=== PATIENT | male | born 1980 | race Caucasian/White ===

== ENCOUNTER 2021-04-25 02:40 | Emergency (ER) | payer MEDICAID ==
[~2021-04-25] VITALS: Ht 172.7 cm; Wt 79.4 kg
--- NOTE | 2021-04-25 04:00 | NUR ---
PRESNETED TO THE ER FOR C/O BILATERAL FOREARM REDNESS, SWELLING AND INFECTION. ADMITTED ON INJECTING HEROIN. PT A, OX4, AMBULATORY TO BED 2 ER, WAS PLACED ON A MONITOR,. VSS . WILL CONT TO MONITOR
[2021-04-25] MEDS ORDERED: CEPH500T PO (04:13)
[2021-04-25] MEDS ORDERED: HYDR-3980 PO (04:13)
[2021-04-25] MEDS ORDERED: SULF1TAB48 PO (04:13)
[2021-04-25] MEDS ORDERED: LIDOCAINE 1%-EPI 1:100,000 20 ML VIAL ONE (04:14)
[2021-04-25] MEDS ORDERED: LORAZEPAM 1 MG TABLET ONE (04:14)
[2021-04-25] MEDS ORDERED: SODIUM BICARBONATE 5 ML VIAL ONE (04:14)
[2021-04-25] MEDS ORDERED: HYDROMORPHONE INJ 2 MG/ML DISP.SYRIN ONE (04:14)
[2021-04-25] MEDS ORDERED: TDAP [DIPH/PERTUSSIS/TET] 0.5 ML VIAL IM ONE ×2 (04:15→04:30)
[2021-04-25] MEDS ORDERED: HYDROMORPHONE 1 MG/1 ML DISP.SYRIN ONE (04:15)
[2021-04-25] MEDS ORDERED: CEFTRIAXONE 1 G VIAL ONE (04:15)
[2021-04-25] MEDS ORDERED: SULFAMETH/TRIMETH 800/160 MG 1 UDTAB TABLET ONE (04:15)
[2021-04-25] MEDS ORDERED: LIDOCAINE 1%-EPI 1:100,000 20 ML VIAL IJ ONE (04:30)
[2021-04-25] MEDS ORDERED: SODIUM BICARBONATE 5 ML VIAL MC ONE (04:30)
[2021-04-25] MEDS ORDERED: LORAZEPAM 1 MG TABLET PO ONE (04:30)
[2021-04-25] MEDS ORDERED: HYDROMORPHONE INJ 2 MG/ML DISP.SYRIN IM ONE (04:30)
[2021-04-25] MEDS ORDERED: SULFAMETH/TRIMETH 800/160 MG 1 UDTAB TABLET PO ONE (04:30)
[2021-04-25] MEDS ORDERED: CEFTRIAXONE 1 G VIAL IM ONE (04:30)
--- NOTE | 2021-04-25 05:30 | NUR ---
DR BAILEY AT BED SIDE FOR I&D
--- NOTE | 2021-04-25 06:49 | NUR ---
PT IS MEDICALLY STABLE FOR D/C. Patient discharged to home in stable condition. rx and Written and verbal after care instructions given. Patient verbalizes understanding of instruction.
[2021-04-25 06:52] VITALS: BP 139/88
== END 2021-04-25 06:54 | disposition home or self-care (01) ==
LOC: ER 02:46
DX: L02.414 Cutaneous abscess of left upper limb (principal); L03.114 Cellulitis of left upper limb; L03.113 Cellulitis of right upper limb; F17.210 Nicotine dependence, cigarettes, uncomplicated; Z60.2 Problems related to living alone; Z79.899 Other long term (current) drug therapy
CPT/HCPCS: 10060; 73090; 90471; 90715; 96372 ×2; 99284; 99406; A6403; A6407; J0696; J1170 ×2; J3490 ×2

== ENCOUNTER 2022-04-02 01:05 | Emergency (ER) | payer MEDICAID ==
[~2022-04-02] VITALS: Ht 167.6 cm; Wt 104.3 kg
[~2022-04-02 01:05] MED LIST: CEPH500T PO; HYDR-3980 PO; SULF1TAB48 PO
[2022-04-02 01:30] VITALS: BP 140/80
[2022-04-02] MEDS ORDERED: NALO1DIS2 IM (05:42)
== END 2022-04-02 06:19 | disposition home or self-care (01) ==
LOC: ER 01:06
DX: F11.10 Opioid abuse, uncomplicated (principal); F17.200 Nicotine dependence, unspecified, uncomplicated; Z60.2 Problems related to living alone; Z79.899 Other long term (current) drug therapy

== ENCOUNTER 2023-12-04 09:26 | Emergency (ER) | payer MEDICAID, OTHER ==
[~2023-12-04] VITALS: Ht 172.7 cm; Wt 74.8 kg
[~2023-12-04 09:26] MED LIST changes: +NALO1DIS2 IM
[2023-12-04] MEDS ORDERED: CLIN300C12 PO (09:49)
[2023-12-04] MEDS ORDERED: CLINDAMYCIN HCL 150 MG CAPSULE ONE (09:54)
[2023-12-04] MEDS: CLINDAMYCIN HCL 150 MG CAPSULE PO ONE (09:58)
[2023-12-04 10:08] VITALS: BP 120/68; TEMP 98.6; O2SAT 98
== END 2023-12-04 10:11 | disposition home or self-care (01) ==
LOC: ER 09:35
DX: L98.491 Non-pressure chronic ulcer of skin of other sites limited to breakdown of skin (principal); L03.114 Cellulitis of left upper limb; F17.200 Nicotine dependence, unspecified, uncomplicated; Z79.899 Other long term (current) drug therapy; Z60.2 Problems related to living alone

== ENCOUNTER 2024-12-14 11:51 | Emergency (ER) | payer OTHER ==
[~2024-12-14] VITALS: Ht 172.7 cm; Wt 76.7 kg
[~2024-12-14 11:51] MED LIST changes: +CLIN300C12 PO
[2024-12-14 12:18] LABS: PLATELET COUNT (AUTO) 371 K/uL (150-450); RED BLOOD CELL COUNT(AUTO) 4.63 MIL/uL (4.5-6.0); RED CELL DISTRIBUTION WIDTH 15.5 % (11.5-15.0); WHITE BLOOD COUNT (AUTO) 5.9 K/uL (4.3-11.0)
[2024-12-14 12:28] LABS: CALCIUM, SERUM 9.9 mg/dL (8.5-10.1); CREATININE 1.5 mg/dL (0.6-1.3); SODIUM SERUM 142 mmol/L (136-145); UREA NITROGEN, BLOOD 10 mg/dL (7-18)
[2024-12-14 12:53] LABS: ALCOHOL, BLOOD < 3 mg/dL (0-10); ASPARTATE AMINOTRANSFERASE 35 U/L (15-37); TOTAL PROTEIN, SERUM 7.9 g/dL (6.4-8.2)
[2024-12-14 15:03] LABS: APPEARANCE,URINE CLEAR (CLEAR); BLOOD, URINE 2+ Ery/uL (NEGATIVE); LEUKOCYTE ESTERASE ,URINE NEGATIVE (NEGATIVE); NITRITE, URINE NEGATIVE (NEGATIVE); UGLUCOSE NEGATIVE (NEGATIVE)
[2024-12-14 15:14] LABS: ADD URINE CULTURE NO; SQUAMOUS EPITHELIAL CELL,UR Few /HPF (None Seen)
[2024-12-14 15:18] LABS: BARBITURATE, URINE NEGATIVE (NEGATIVE); BENZODIAZEPINE, URINE NEGATIVE (NEGATIVE); CANNABINOID, URINE NEGATIVE (NEGATIVE); COCCAINE, URINE NEGATIVE (NEGATIVE); OPIATE, URINE NEGATIVE (NEGATIVE)
[2024-12-14 15:19] LABS: AMPHETAMINE, URINE POSITIVE (NEGATIVE)
[2024-12-14 18:43] VITALS: BP 128/80; TEMP 98.2; O2SAT 97
[2024-12-15] MEDS ORDERED: NALO4SPR BNOSTRILS (09:14)
[2024-12-15] MEDS ORDERED: BUPR8TAB4 SL (12:11)
== END 2024-12-14 18:30 ==
LOC: ER 11:55
DX: F32.A Depression, unspecified (principal); F17.200 Nicotine dependence, unspecified, uncomplicated; Z79.899 Other long term (current) drug therapy; Z60.2 Problems related to living alone; Z20.822 Contact with and (suspected) exposure to COVID-19
CPT/HCPCS: 36415; 80048-TC; 80076-TC; 81001; 85025-TC; G0480

== ENCOUNTER 2024-12-14 20:29 | Emergency (ER) | payer OTHER ==
[~2024-12-14] VITALS: Ht 172.7 cm; Wt 76.7 kg
[2024-12-14 22:58] LABS: PLATELET COUNT (AUTO) 347 K/uL (150-450); RED BLOOD CELL COUNT(AUTO) 4.35 MIL/uL (4.5-6.0); RED CELL DISTRIBUTION WIDTH 15.6 % (11.5-15.0); WHITE BLOOD COUNT (AUTO) 8.0 K/uL (4.3-11.0)
[2024-12-14 23:30] LABS: ALCOHOL, BLOOD < 3 mg/dL (0-10); ASPARTATE AMINOTRANSFERASE 31 U/L (15-37); CALCIUM, SERUM 9.2 mg/dL (8.5-10.1); CREATININE 1.2 mg/dL (0.6-1.3); SODIUM SERUM 137 mmol/L (136-145); TOTAL PROTEIN, SERUM 7.1 g/dL (6.4-8.2); UREA NITROGEN, BLOOD 11 mg/dL (7-18)
[2024-12-15 02:21] LABS: APPEARANCE,URINE SLIGHTLY CLOUDY (CLEAR); BLOOD, URINE 2+ Ery/uL (NEGATIVE); LEUKOCYTE ESTERASE ,URINE NEGATIVE (NEGATIVE); NITRITE, URINE NEGATIVE (NEGATIVE); UGLUCOSE NEGATIVE (NEGATIVE)
[2024-12-15 02:24] LABS: ADD URINE CULTURE NO; SQUAMOUS EPITHELIAL CELL,UR Moderate /HPF (None Seen)
[2024-12-15 02:32] LABS: BARBITURATE, URINE NEGATIVE (NEGATIVE); BENZODIAZEPINE, URINE NEGATIVE (NEGATIVE); CANNABINOID, URINE NEGATIVE (NEGATIVE); COCCAINE, URINE NEGATIVE (NEGATIVE); OPIATE, URINE NEGATIVE (NEGATIVE)
[2024-12-15 02:48] LABS: AMPHETAMINE, URINE POSITIVE (NEGATIVE)
[2024-12-15] MEDS ORDERED: LEVOFLOXACIN (250MG) 250 MG TABLET ONE (03:00)
[2024-12-15] MEDS: LEVOFLOXACIN (250MG) 250 MG TABLET PO ONE (03:06)
[2024-12-15] MEDS ORDERED: NALO4SPR BNOSTRILS (09:14)
[2024-12-15 09:43] VITALS: BP 137/85; TEMP 98.8; O2SAT 99
[2024-12-15] MEDS ORDERED: BUPR8TAB4 SL (12:11)
== END 2024-12-15 09:44 | disposition home or self-care (01) ==
LOC: ER 20:31
DX: F29 Unspecified psychosis not due to a substance or known physiological condition (principal); F19.10 Other psychoactive substance abuse, uncomplicated; F17.200 Nicotine dependence, unspecified, uncomplicated; F32.A Depression, unspecified; Z59.00 Homelessness unspecified; Z60.2 Problems related to living alone; Z79.899 Other long term (current) drug therapy; Z20.822 Contact with and (suspected) exposure to COVID-19
CPT/HCPCS: 36415; 80048-TC; 80076-TC; 81001; 85025-TC; 87086-TC; G0480; J7030

== ENCOUNTER 2024-12-15 09:49 | Emergency (ER) | payer OTHER ==
[~2024-12-15] VITALS: Ht 167.6 cm; Wt 76.7 kg
[~2024-12-15 09:49] MED LIST changes: +NALO4SPR BNOSTRILS
[2024-12-15] MEDS ORDERED: BUPRENORPHINE HCL 8 MG TAB.SUBL SL ONE (10:56)
[2024-12-15] MEDS ORDERED: ONDANSETRON 4 MG TAB.RAPDIS ONE (10:56)
[2024-12-15 11:10] VITALS: TEMP 98.2
[2024-12-15] MEDS: BUPRENORPHINE HCL 8 MG TAB.SUBL SL ONE (11:15)
[2024-12-15] MEDS: ONDANSETRON 4 MG TAB.RAPDIS SL ONE (11:15)
[2024-12-15] MEDS ORDERED: BUPR8TAB4 SL (12:11)
[2024-12-15 13:55] VITALS: BP 129/66; O2SAT 97
== END 2024-12-15 13:30 | disposition home or self-care (01) ==
LOC: ER 10:00
DX: F11.23 Opioid dependence with withdrawal (principal); F17.200 Nicotine dependence, unspecified, uncomplicated; Z79.899 Other long term (current) drug therapy; Z60.2 Problems related to living alone
CPT/HCPCS: 99283; Q0162

== ENCOUNTER 2024-12-15 15:57 | Emergency (ER) | payer OTHER ==
[~2024-12-15] VITALS: Ht 167.6 cm; Wt 64.9 kg
[~2024-12-15 15:57] MED LIST changes: +BUPR8TAB4 SL
[2024-12-15 17:55] LABS: PLATELET COUNT (AUTO) 367 K/uL (150-450); RED BLOOD CELL COUNT(AUTO) 4.43 MIL/uL (4.5-6.0); RED CELL DISTRIBUTION WIDTH 15.1 % (11.5-15.0); WHITE BLOOD COUNT (AUTO) 11.9 K/uL (4.3-11.0)
[2024-12-15 18:14] LABS: CALCIUM, SERUM 9.0 mg/dL (8.5-10.1); CREATININE 1.5 mg/dL (0.6-1.3); SODIUM SERUM 138 mmol/L (136-145); UREA NITROGEN, BLOOD 18 mg/dL (7-18)
[2024-12-15 18:27] LABS: ALCOHOL, BLOOD < 3 mg/dL (0-10); ASPARTATE AMINOTRANSFERASE 21 U/L (15-37); TOTAL PROTEIN, SERUM 7.0 g/dL (6.4-8.2)
[2024-12-15 20:06] LABS: APPEARANCE,URINE CLEAR (CLEAR); BLOOD, URINE 3+ Ery/uL (NEGATIVE); LEUKOCYTE ESTERASE ,URINE 2+ (NEGATIVE); NITRITE, URINE POSITIVE (NEGATIVE); UGLUCOSE NEGATIVE (NEGATIVE)
[2024-12-15 20:08] LABS: ADD URINE CULTURE YES; HYALINE CASTS, URINE Few /LPF (None Seen); SQUAMOUS EPITHELIAL CELL,UR Rare /HPF (None Seen); URINE AMORPHOUS PHOSPHATES Moderate /HPF (None Seen)
[2024-12-15 20:26] LABS: BARBITURATE, URINE NEGATIVE (NEGATIVE); BENZODIAZEPINE, URINE NEGATIVE (NEGATIVE); CANNABINOID, URINE NEGATIVE (NEGATIVE); COCCAINE, URINE NEGATIVE (NEGATIVE); OPIATE, URINE NEGATIVE (NEGATIVE)
[2024-12-15 20:27] LABS: AMPHETAMINE, URINE POSITIVE (NEGATIVE)
[2024-12-16 13:57] VITALS: BP 129/95; TEMP 98; O2SAT 99
== END 2024-12-16 13:58 ==
LOC: ER 16:00
DX: R46.1 Bizarre personal appearance (principal); Z60.2 Problems related to living alone; Z79.899 Other long term (current) drug therapy; Z20.822 Contact with and (suspected) exposure to COVID-19
CPT/HCPCS: 36415; 80048-TC; 80076-TC; 81001; 85025-TC; 87086-TC; 87186-TC; G0480

== ENCOUNTER 2024-12-17 06:49 | Emergency (ER) | payer OTHER ==
[~2024-12-17] VITALS: Ht 167.6 cm; Wt 64.9 kg
[2024-12-17 06:52] VITALS: BP 151/90; TEMP 98.6; O2SAT 100
== END 2024-12-17 07:10 | disposition left against medical advice (07) ==
LOC: ER 06:56
DX: F11.13 Opioid abuse with withdrawal (principal); F32.A Depression, unspecified; Z53.21 Procedure and treatment not carried out due to patient leaving prior to being seen by health care provider